=== PATIENT | female | born 2000 | race Caucasian/White ===

== ENCOUNTER 2023-08-08 23:35 | Day surgery (SDC) | payer BC, SELFPAY ==
[2023-08-08 16:17] VITALS: BP 132/81
[2023-08-08 16:53] LABS: % Basophils 0.2 % (0-2); % Eosinophils 0.9 % (0-6); % Immature Granulocytes 0.1 % (0-0.5); % Lymphocytes 24.7 % (20.5-51.1); % Monocytes 7.8 % (1.7-9.3); % Neutrophils 66.3 % (42.2-75.2); Absolute Eosinophils 0.1 10^3/uL (0-0.7); Absolute Lymphocytes 2.2 10^3/uL (1.2-3.4); Absolute Monocytes 0.7 10^3/uL (0.1-0.6); Absolute Neutrophils 5.9 10^3/uL (1.4-6.5); Hematocrit 37.5 % (37.0-47.0); Hemoglobin 12.6 g/dL (12.0-16.0); Mean Corp Hgb Conc. 33.6 g/dL (33.0-37.0); Mean Corpuscular Volume 80.5 fL (81.0-99.0); Mean Platelet Volume 11.2 fL (7.4-10.4); Nucleated Red Blood Cells % 0 %; Platelet Count 297 10^3/uL (130-400); Red Blood Cell Count 4.66 10^6/uL (4.20-5.40)
[2023-08-08 16:54] LABS: Urine Albumin Negative (Neg - Trace); Urine Bilirubin Negative (Negative); Urine Character Clear (Clear); Urine Color Yellow; Urine Glucose Negative (Negative); Urine Ketone Negative (Negative); Urine Leukocyte Negative (Negative); Urine Nitrite Negative (Negative); Urine Occult Blood Negative (Negative); Urine Urobilinogen Negative (Neg - 1+)
[2023-08-08 17:04] LABS: HCG, Serum Qualitative Screen Negative
[2023-08-08 17:10] LABS: ALT (SGPT) 18 U/L (0-35); AST (SGOT) 23 U/L (14-36); Albumin 4.4 g/dl (3.5-5.0); Alkaline Phosphatase 59 U/L (38-126); Blood Urea Nitrogen 10 mg/dl (7-17); Calcium 9.7 mg/dl (8.4-10.2); Carbon Dioxide 24 mmol/L (22-30); Chloride 102 mmol/L (98-107); Glucose 133 mg/dl (70-99); Potassium 4.3 mmol/L (3.5-5.1); Sodium 137 mmol/L (135-145); Total Bilirubin 0.5 mg/dl (0.2-1.3); Total Protein 7.7 g/dl (6.3-8.2); eGFR > 60.00
[2023-08-08 17:11] LABS: Lipase 98 U/L (23-300)
[2023-08-08] MEDS: OMNIPAQUE 50 ML PO (18:25)
[2023-08-08] MEDS: TORADOL 15 MG IV (19:38)
[2023-08-08] MEDS: NSS 1000 IV (19:39)
[2023-08-08 19:46] VITALS: BP 125/70
--- NOTE | 2023-08-08 20:50 | ED.GENMED ---
History of Present Illness
<LARISA Crane - Last Filed: 08/10/23 09:21>
General
Chief Complaint: Abdominal Pain
Source: patient
Exam Limitations: none
Time Seen by Provider: 08/08/23 17:38
Nursing documentation reviewed up to this point in time: agreed with
Travel History
Have you had any contact with someone who has COVID-19?: No
Do you have any symptoms of coronavirus? Fever > 100 degrees, chills, cough, shortness of breath, sore throat, loss of taste or smell, muscle aches, or headache?: No
History of Present Illness
History of Present Illness:
Patient is a 23-year-old female who presents with abdominal pain. Patient reports this morning she was awoken by lower abdominal pain. She went to the bathroom and passed some gas however pain continued throughout the day. She seems to feel pain
in the right lower quadrant right side of the abdomen. She did move her bowels yesterday normally. She denies any urinary frequency urgency or dysuria. She is not sexually active. She is due for her period next week.
She is mildly nauseous denies any fever chills back pain.
Review of Systems
<LARISA Crane - Last Filed: 08/10/23 09:21>
Review of Systems
Allergies reviewed?: Yes
All Other Systems: ROS reviewed and negative except as documented in HPI and ROS
Constitutional: Reports no symptoms; Denies fever, fatigue or chills
Respiratory: Reports no symptoms
Cardiac: Reports no symptoms
ABD/GI: Reports abdominal pain and nausea; Denies vomiting, diarrhea or constipated
: Reports no symptoms
Musculoskeletal: Reports no symptoms
Skin: Reports no symptoms
Neurological: Reports no symptoms
Hematologic/Lymphatic: Reports no symptoms
Psychiatric: Reports no symptoms
Phy Exam
<LARISA Crane - Last Filed: 08/10/23 09:21>
General Physical Exam
General Presentation: no apparent distress
General age: appears stated age
General Skin: warm and dry
General Habitus: normal
General Mental: alert
General Hydration: appears well hydrated
Cardiovascular Exam
Cardiovascular Exam: regular rate/rhythm, no murmur and normal peripheral pulses
Pulmonary Exam
Pulmonary Exam: lungs clear and no respiratory distress
Gastrointestinal Exam
Gastrointestinal Exam: non tender, soft and other (right lq tenderness no guarding no rebound )
Neurological Exam
Neurological Exam: alert and oriented x3
Weidman Coma Scale
Eye Opening: Spontaneous
Verbal Response: Oriented
Motor Response: Obeys Commands
GCS Total Score: 15
Musculoskeletal Exam
Musculoskeletal Exam: full ROM
Skin Exam
Skin Exam: normal color and warm/dry
Psychiatric Exam
Psychiatric Exam: normal mood/affect
<LARISA Russ - Last Filed: 08/08/23 22:26>
Amy Coma Scale
GCS Total Score: 15
Course
<Nallely Erickson, LARISA - Last Filed: 08/10/23 09:21>
Orders/Labs/Results
Orders:
Orders
08/08/23 16:33
Test Result ONCE
08/08/23 16:38
CMP [Comprehensive Metabolic Panel] Urgent
Complete Blood Count/With Diff Urgent
HCG, Serum Qualitative Screen Urgent
Lipase Urgent
Urinalysis Reflex To Culture Urgent
Date Specimen was Collected: 08/08/23
Time Specimen was Collected: 16:33
08/08/23 18:14
Iohexol [Omnipaque] See Protocol PO NOW STA
08/08/23 18:15
CT Abd/pel W Iv And Oral Contr Urgent
Comment:
Reason For Exam: rlq pain
08/08/23 18:16
US Pelvis Only (non-obstetric) Urgent
Comment:
Reason For Exam: rlq pain
08/08/23 19:20
0.9% Sodium Chloride 1000 ml [Nss] 1,000 ml IV BOLUS
Ketorolac [Toradol] 15 mg IV NOW STA
08/08/23 22:19
Piperacillin/Tazo 3.375 Gram [Zosyn] 3.375 gram in 50 ml IV NOW
08/08/23 22:59
Admit/Transfer Patient As Directed
Co-Sign Provider:
Level of Care: Inpatient admission
Assign to:: Medical/Surgical
Physician / Group: Luis Wilson
Diagnosis: Acute Appendicitis
Reason for Hospitalization: IV medications
Expected length of stay greater than two midnights?: No
ELOS- Estimated Length of Stay in days: 1
I certify the patient meets the requirements for IP care: Yes
08/08/23 23:01
Code Status As Directed
Resuscitation Status: Full Code
08/08/23 23:55
HYDROmorphone [Dilaudid] 0.5 mg IV Q4HPRN PRN
Ketorolac [Toradol] 10 mg IV Q6HPRN PRN
Ondansetron Injectable [Zofran] 4 mg IV Q6HPRN PRN
08/08/23 23:55
Activity As Directed
Activity Level: Out of Bed-Early Mobility
Anti-embolism (LISSETT) Hose As Directed
Type: Thigh high
Intake/ Output As Directed
Frequency: Per unit guidelines
Pneumatic Compression Sleeves As Directed
Type: Thigh high
Vital Signs As Directed
Frequency: Per unit guidelines
DX Deep Vein Thrombosis Video Routine
08/09/23 03:00
Flush (0.9% Sodium Chloride) [Flush (Nss)] See Dose Instructions IV PER PROTOCOL
08/09/23 04:00
Piperacillin/Tazo 3.375 Gram [Zosyn] 3.375 gram in 50 ml IV Q6H
08/09/23 05:38
Basic Metabolic Panel IN AM
Complete Blood Count/No Diff IN AM
08/09/23 Breakfast
NPO
Allow oral meds: Yes
Allow clear liquids: No
08/09/23 10:10
HYDROmorphone [Dilaudid] 0.25 mg IV PACU-Q5MPRN PRN
HYDROmorphone [Dilaudid] 0.5 mg IV PACU-Q5MPRN PRN
Meperidine [Demerol] 12.5 mg IV PACU-Q5MPRN PRN
Ondansetron Injectable [Zofran] 4 mg IV PACU-ONCEPRN PRN
Prochlorperazine [Compazine] 5 mg IV PACU-ONCEPRN PRN
Notify MD As Directed
Notify physician if: for SDS patients with known or suspected sleep obstructive sleep apnea, monitor in the
PACU.
Notify MD for any apneic/desaturation episodes
O2 Therapy [RESP] Urgent
Titrate/Wean O2 to maintain O2 sat greater than (%): 92
Special Instructions: -Provide supplemental oxygen to achieve O2 sat of 92% or greater.
-After 15 min, may wean O2 and discontinue if patient is able to maintain O2 sat of 92%
or greater during recovery period.
If patient is a discharge home, without oxygen therapy, notify anestheiologist if
unable to maintain O2 SAT of 92% or greater on room air for MD clearance.
08/09/23 10:15
Normosol (Mult Electrolytes) [Normosol-R] 1,000 ml IV PER PROTOCOL
08/09/23 11:53
Bupivacaine Mpf 0.25% [Sensorcaine-Mpf 0.25% Vial] 30 ml .ROUTE .STK-MED ONE
Bupivacaine Pf 0.5% [Sensorcaine 0.5% Single Dose] 30 ml .ROUTE .STK-MED ONE
08/09/23 11:56
Dexamethasone Sod Phosphate [Decadron] 20 mg .ROUTE .STK-MED ONE
Fentanyl Citrate/Pf [Sublimaze] 100 mcg .ROUTE .STK-MED ONE
Lidocaine HCl/Pf [Xylocaine-Mpf 1% Vial] 50 mg .ROUTE .STK-MED ONE
Ondansetron Injectable [Zofran] 4 mg .ROUTE .STK-MED ONE
Propofol [Diprivan] 20 ml .ROUTE .STK-MED
Rocuronium [place] [Rocuronium] 50 mg .ROUTE .STK-MED ONE
08/09/23 11:57
Midazolam HCl [Versed] 2 mg .ROUTE .STK-MED ONE
08/09/23 13:10
HYDROmorphone [Dilaudid] 1 mg .ROUTE .STK-MED ONE
08/09/23 13:18
Sugammadex Sodium [Bridion] 200 mg .ROUTE .STK-MED ONE
08/09/23 13:19
Acetaminophen 1000MG/100Ml [Ofirmev] 1,000 mg in 100 ml .ROUTE .STK-MED
08/09/23 13:26
OR Pathology Routine
Pre-Operative Diagnosis: APPENDICITIS
Operative Procedure: LAPAROSCOPIC APPENDECTOMY
Surgeon: DAVID
Circulating Nurse: LATIA LOPEZ
Specimen Type: APPENDIX
08/09/23 13:28
Discharge Patient As Directed
Is patient a candidate for the pneumococcal vaccine?: No
Is patient a candidate for the influenza vaccine?: No
Do you have a designated caregiver: Yes-same as spokesperson
08/09/23 13:35
Level of Care Change As Directed
Level of Care: Post Proc/Surg Recovery
Reason for Overnight Stay: Standard of Care
08/09/23 14:18
HYDROmorphone [Dilaudid] 0.5 mg .ROUTE .STK-MED ONE
08/09/23 15:00
Acetaminophen [Tylenol] 650 mg PO SDS-Q4HPRN PRN
Ondansetron Injectable [Zofran] 4 mg IV SDS-ONCEPRN PRN
Oxycodone [Roxicodone] 10 mg PO SDS-Q4HPRN PRN
Oxycodone [Roxicodone] 5 mg PO SDS-Q4HPRN PRN
08/09/23 15:15
HYDROmorphone [Dilaudid] 0.5 mg .ROUTE .STK-MED ONE
08/10/23 04:00
Piperacillin/Tazo 3.375 Gram [Zosyn] 3.375 gram in 50 ml IV Q6H
Abnormal Lab Results
08/08/23 08/09/23
16:38 05:38
Hgb 11.4 L g/dL
(12.0-16.0)
Hct 34.9 L %
(37.0-47.0)
MCV 80.5 L fL
(81.0-99.0)
MCH 26.8 L pg
(27.0-31.0)
MCHC 32.7 L g/dL
(33.0-37.0)
MPV 11.2 H fL 11.1 H fL
(7.4-10.4) (7.4-10.4)
Absolute Monos (auto) 0.7 H 10^3/uL
(0.1-0.6)
Chloride 108 H mmol/L
(98-107)
Glucose 133 H mg/dl
(70-99)
08/09/23 05:38
08/09/23 05:38
Vital Signs
Initial and Last Documented VS:
Initial Vital Signs
Temp Pulse Resp BP Pulse Ox
98.7 F 97 18 132/81 98
08/08/23 16:17 08/08/23 16:17 08/08/23 16:17 08/08/23 16:17 08/08/23 16:17
Last Documented Vital Signs
Temp Pulse Resp BP Pulse Ox
98 F 78 18 122/78 96
08/09/23 15:25 08/09/23 17:20 08/09/23 17:20 08/09/23 17:20 08/09/23 17:20
Spring Setter consulted with Physician
Spring Setter consulted with physician?: Yes
Name of Physician Consulted: Bayron
<LARISA Russ - Last Filed: 08/08/23 22:26>
Orders/Labs/Results
Orders:
Orders
08/08/23 16:33
Test Result ONCE
08/08/23 16:38
CMP [Comprehensive Metabolic Panel] Urgent
Complete Blood Count/With Diff Urgent
HCG, Serum Qualitative Screen Urgent
Lipase Urgent
Urinalysis Reflex To Culture Urgent
Date Specimen was Collected: 08/08/23
Time Specimen was Collected: 16:33
08/08/23 18:14
Iohexol [Omnipaque] See Protocol PO NOW STA
08/08/23 18:15
CT Abd/pel W Iv And Oral Contr Urgent
Comment:
Reason For Exam: rlq pain
08/08/23 18:16
US Pelvis Only (non-obstetric) Urgent
Comment:
Reason For Exam: rlq pain
08/08/23 19:20
0.9% Sodium Chloride 1000 ml [Nss] 1,000 ml IV BOLUS
Ketorolac [Toradol] 15 mg IV NOW STA
08/08/23 22:19
Piperacillin/Tazo 3.375 Gram [Zosyn] 3.375 gram in 50 ml IV NOW
08/08/23 22:59
Admit/Transfer Patient As Directed
Co-Sign Provider:
Level of Care: Inpatient admission
Assign to:: Medical/Surgical
Physician / Group: Luis Wilson
Diagnosis: Acute Appendicitis
Reason for Hospitalization: IV medications
Expected length of stay greater than two midnights?: No
ELOS- Estimated Length of Stay in days: 1
I certify the patient meets the requirements for IP care: Yes
08/08/23 23:01
Code Status As Directed
Resuscitation Status: Full Code
08/08/23 23:55
HYDROmorphone [Dilaudid] 0.5 mg IV Q4HPRN PRN
Ketorolac [Toradol] 10 mg IV Q6HPRN PRN
Ondansetron Injectable [Zofran] 4 mg IV Q6HPRN PRN
08/08/23 23:55
Activity As Directed
Activity Level: Out of Bed-Early Mobility
Anti-embolism (LISSETT) Hose As Directed
Type: Thigh high
Intake/ Output As Directed
Frequency: Per unit guidelines
Pneumatic Compression Sleeves As Directed
Type: Thigh high
Vital Signs As Directed
Frequency: Per unit guidelines
DX Deep Vein Thrombosis Video Routine
08/09/23 03:00
Flush (0.9% Sodium Chloride) [Flush (Nss)] See Dose Instructions IV PER PROTOCOL
08/09/23 04:00
Piperacillin/Tazo 3.375 Gram [Zosyn] 3.375 gram in 50 ml IV Q6H
08/09/23 05:38
Basic Metabolic Panel IN AM
Complete Blood Count/No Diff IN AM
08/09/23 Breakfast
NPO
Allow oral meds: Yes
Allow clear liquids: No
08/09/23 10:10
HYDROmorphone [Dilaudid] 0.25 mg IV PACU-Q5MPRN PRN
HYDROmorphone [Dilaudid] 0.5 mg IV PACU-Q5MPRN PRN
Meperidine [Demerol] 12.5 mg IV PACU-Q5MPRN PRN
Ondansetron Injectable [Zofran] 4 mg IV PACU-ONCEPRN PRN
Prochlorperazine [Compazine] 5 mg IV PACU-ONCEPRN PRN
Notify MD As Directed
Notify physician if: for SDS patients with known or suspected sleep obstructive sleep apnea, monitor in the
PACU.
Notify MD for any apneic/desaturation episodes
O2 Therapy [RESP] Urgent
Titrate/Wean O2 to maintain O2 sat greater than (%): 92
Special Instructions: -Provide supplemental oxygen to achieve O2 sat of 92% or greater.
-After 15 min, may wean O2 and discontinue if patient is able to maintain O2 sat of 92%
or greater during recovery period.
If patient is a discharge home, without oxygen therapy, notify anestheiologist if
unable to maintain O2 SAT of 92% or greater on room air for MD clearance.
08/09/23 10:15
Normosol (Mult Electrolytes) [Normosol-R] 1,000 ml IV PER PROTOCOL
08/09/23 11:53
Bupivacaine Mpf 0.25% [Sensorcaine-Mpf 0.25% Vial] 30 ml .ROUTE .STK-MED ONE
Bupivacaine Pf 0.5% [Sensorcaine 0.5% Single Dose] 30 ml .ROUTE .STK-MED ONE
08/09/23 11:56
Dexamethasone Sod Phosphate [Decadron] 20 mg .ROUTE .STK-MED ONE
Fentanyl Citrate/Pf [Sublimaze] 100 mcg .ROUTE .STK-MED ONE
Lidocaine HCl/Pf [Xylocaine-Mpf 1% Vial] 50 mg .ROUTE .STK-MED ONE
Ondansetron Injectable [Zofran] 4 mg .ROUTE .STK-MED ONE
Propofol [Diprivan] 20 ml .ROUTE .STK-MED
Rocuronium [place] [Rocuronium] 50 mg .ROUTE .STK-MED ONE
08/09/23 11:57
Midazolam HCl [Versed] 2 mg .ROUTE .STK-MED ONE
08/09/23 13:10
HYDROmorphone [Dilaudid] 1 mg .ROUTE .STK-MED ONE
08/09/23 13:18
Sugammadex Sodium [Bridion] 200 mg .ROUTE .STK-MED ONE
08/09/23 13:19
Acetaminophen 1000MG/100Ml [Ofirmev] 1,000 mg in 100 ml .ROUTE .STK-MED
08/09/23 13:26
OR Pathology Routine
Pre-Operative Diagnosis: APPENDICITIS
Operative Procedure: LAPAROSCOPIC APPENDECTOMY
Surgeon: DAVID
Circulating Nurse: LATIA LOPEZ
Specimen Type: APPENDIX
08/09/23 13:28
Discharge Patient As Directed
Is patient a candidate for the pneumococcal vaccine?: No
Is patient a candidate for the influenza vaccine?: No
Do you have a designated caregiver: Yes-same as spokesperson
08/09/23 13:35
Level of Care Change As Directed
Level of Care: Post Proc/Surg Recovery
Reason for Overnight Stay: Standard of Care
08/09/23 14:18
HYDROmorphone [Dilaudid] 0.5 mg .ROUTE .STK-MED ONE
08/09/23 15:00
Acetaminophen [Tylenol] 650 mg PO SDS-Q4HPRN PRN
Ondansetron Injectable [Zofran] 4 mg IV SDS-ONCEPRN PRN
Oxycodone [Roxicodone] 10 mg PO SDS-Q4HPRN PRN
Oxycodone [Roxicodone] 5 mg PO SDS-Q4HPRN PRN
08/09/23 15:15
HYDROmorphone [Dilaudid] 0.5 mg .ROUTE .STK-MED ONE
08/10/23 04:00
Piperacillin/Tazo 3.375 Gram [Zosyn] 3.375 gram in 50 ml IV Q6H
Abnormal Lab Results
08/08/23 08/09/23
16:38 05:38
Hgb 11.4 L g/dL
(12.0-16.0)
Hct 34.9 L %
(37.0-47.0)
MCV 80.5 L fL
(81.0-99.0)
MCH 26.8 L pg
(27.0-31.0)
MCHC 32.7 L g/dL
(33.0-37.0)
MPV 11.2 H fL 11.1 H fL
(7.4-10.4) (7.4-10.4)
Absolute Monos (auto) 0.7 H 10^3/uL
(0.1-0.6)
Chloride 108 H mmol/L
(98-107)
Glucose 133 H mg/dl
(70-99)
08/09/23 05:38
08/09/23 05:38
Vital Signs
Initial and Last Documented VS:
Initial Vital Signs
Temp Pulse Resp BP Pulse Ox
98.7 F 97 18 132/81 98
08/08/23 16:17 08/08/23 16:17 08/08/23 16:17 08/08/23 16:17 08/08/23 16:17
Last Documented Vital Signs
Temp Pulse Resp BP Pulse Ox
98 F 78 18 122/78 96
08/09/23 15:25 08/09/23 17:20 08/09/23 17:20 08/09/23 17:20 08/09/23 17:20
<LARISA Crane - Last Filed: 08/10/23 09:21>
MDM/Problems Addressed
Differential Diagnosis Includes:
not limited to:
Ovarian cyst ovarian torsion appendicitis
MDM/Problems Addressed:
20-year-old female presents with lower abdominal pain that started this morning has worsened throughout the day. On exam patient is tender in the right lower quad no guarding normal ultrasound normal white count no fever. CAT scan pending at this
time.
7:
pt resting awaiting ct results.
<LARISA Russ - Last Filed: 08/08/23 22:26>
MDM/Problems Addressed
MDM/Problems Addressed:
20-year-old female presents with lower abdominal pain that started this morning has worsened throughout the day. On exam patient is tender in the right lower quad no guarding normal ultrasound normal white count no fever. CAT scan pending at this
time.
7:
pt resting awaiting ct results.
Into see patient and explained that she has an acute appendicitis. Will admit patient. Message sent to Dr Guzman and await his response.
<LARISA Crane - Last Filed: 08/10/23 09:21>
*Radiology
Radiology exam reviewed: radiology read reviewed (Normal ultrasound of pelvis)
*Pulse Oximetry
Patient hypoxic: no
<LARISA Russ - Last Filed: 08/08/23 22:26>
*Radiology
Radiology exam reviewed: radiology read reviewed (Normal ultrasound of pelvis CT- Suspected mild acute appendicitis. No CT evidence for perforation or periappendiceal abscess formation. )
*Critical Care Note
Total Time (30-74mins, 75-104mins- exclusive of procedures): Not Applicable
ED Attending Note
<LARISA Crane - Last Filed: 08/10/23 09:21>
-
Portions of this chart may have been created with voice recognition software.� Occasional wrong word or��sound alike� substitutions may have occurred due to the inherent limitations of voice recognition software.
Discharge Plan
Departure
Patient Disposition: Admit
Date of Disposition: 08/08/23
Time of Disposition: 22:25
Admit to: Med/Surg
Presentation/result/management discussed w/ accepting MD/DO: Dr Guzman
Patient with high blood pressure during this ER visit?: No
Condition: Good
Covid-19: Not Applicable
Discharge Problem:
Acute appendicitis
Interventions
Interventions:
*Risk Screen - Suicide Last Done: 08/08/23 16:30
*General Assessment Last Done: 08/09/23 00:20
*Neglect/Abuse Screening Last Done: 08/08/23 16:30
ED- Fall Risk Assessment Last Done: 08/09/23 00:15
*ED COVID-19 Vaccine History Last Done: 08/08/23 16:30
*Nursing Disposition Last Done: 08/09/23 00:15
SK-Ixzpqv-Tnucrjxauj Assessment Last Done: 08/09/23 00:20
[2023-08-08 21:38] VITALS: BP 126/76
[2023-08-08 22:15] VITALS: BP 107/65
[2023-08-08] MEDS: ZOSYN 50 IV (22:23)
--- NOTE | 2023-08-08 22:49 | HPS.HSE ---
Addendum entered and electronically signed by Luis Guzman MD 08/09/23 10:31:
I saw and examined the patient.
The Epic Manager's note was reviewed and I agree with the note.
Comment: Mildly improved this am. Remains ttp to RLQ on exam. Imaging and labs reviewed, c/w acute appendicitis. OCTOR for lap appy. NPO. IV abx
Original Note:
Family Physician
-
Family Physician: Juana Hines MD
Chief Complaint
-
'Abdomen pain'
History of Present Illness
23 y/o patient presents to ER with abdomen pain. Stated epigastric pain started around 6 am, thought she had to move her bowels, only passed gas. Noticed pain then started radiating more towards right lower quadrant and felt 'stabbing' pain and
decided to come to ER for further work up. Had few nausea episodes, no vomiting. LBM yesterday normal stool. Denies any blood in stool or urine. Denies chest pain or shortness of breath. hx of breast reduction in 2018, no other surgical or medical
history.
Medical History
Past Medical History
Past Medical History: Reports None
Past Surgical History: Reports None
Social History
Tobacco: Non-smoker
Alcohol: None
Drug: None
Family History
Family History: Not pertinent
Allergies / Home Medications
Allergies reflects when Allergies were last updated in [employer].
Home Medications with original date entered in [employer]
Allergy/Medication List:
Allergies
Allergy/AdvReac Type Severity Reaction Status Date / Time
No Known Allergies Allergy Unverified 08/08/23 16:28
Home Medications
norgestimate 0.25 mg-ethinyl estradiol 35 mcg tablet (Estarylla) 1 tab PO DAILY 08/08/23
Review of Systems
-
History Source: Patient
A 12 point ROS was completed and negative except as noted: Yes
Constitutional: Reports No Symptoms
EENT: Reports No Symptoms
Respiratory: Reports No Symptoms
Cardiac: Reports No Symptoms
Abdomen/GI: Reports Abdominal Pain and Nausea
: Reports No Symptoms
Musculoskeletal: Reports No Symptoms
Skin: Reports No Symptoms
Neurological: Reports No Symptoms
Endocrine: Reports No Symptoms
Hematologic/Lymphatic: Reports No Symptoms
Psych: Reports No Symptoms
Physical Exam
Vital Signs
Vital Signs
Temp Pulse Resp BP Pulse Ox
98.7 F 73 18 107/65 97
08/08/23 16:17 08/08/23 22:15 08/08/23 22:15 08/08/23 22:15 08/08/23 22:15
Physical Exam
General: Well Developed, Well Nourished and No Apparent Distress
HEENT: NormoCephalic, Moist mucous membranes and Atraumatic
Respiratory: Clear and Non Labored Respirations
Cardiac: S1/S2 and Regular Rhythm
Breast: Deferred by me
GI: Soft, Non Distended, Normal Bowel Sounds and Tender (RLQ, tender with deep breaths )
Rectal: Deferred by Provider
Genito-urinary: Deferred by me
Musculoskeletal: No Clubbing, No Cyanosis and No Edema
Skin: Warm and Dry; No Rash
Neuro: Awake, Oriented, AO x 3 and Nonfocal/grossly intact
Hematologic/Lymphatic: No Lymphadenopathy
Psych: Calm and Intact Judgment/Insight
Laboratory Results
-
08/08/23 16:38
08/08/23 16:38
Laboratory Results
Total Bilirubin 0.5 mg/dl (0.2-1.3) 08/08/23 16:38
AST 23 U/L (14-36) 08/08/23 16:38
ALT 18 U/L (0-35) 08/08/23 16:38
Alkaline Phosphatase 59 U/L (38-126) 08/08/23 16:38
Lipase 98 U/L (23-300) 08/08/23 16:38
Data Reviewed
-
CT Scan: Report Reviewed by me
Ultrasound: Report Reviewed by me
Lab Data: Labs Reviewed by me
Impression/Plan
-
23 y/o with abdomen pain radiating to RLQ
# Abdomen pain likely due to Appendicitis.
-Afebrile
-CT abd/pelvis
Suspected mild acute appendicitis. No CT evidence for perforation or periappendiceal abscess formation.
-Pelvis Ultrasound:
Normal transabdominal ultrasound of the pelvis
-NPO
-continue IV Zosyn
-Continue IV antiemetics
-Continue IV Analgesics
-Admit under Luis Wilson
-Med surg
Full Code
DVT Prophylaxis: SCD's
[2023-08-08 23:46] VITALS: BP 107/67
[2023-08-09] VITALS (14 sets, daily range): BP systolic 95–122; BP diastolic 53–78
[2023-08-09] MEDS: TORADOL 10 MG IV ×2 (00:24→08:13)
[2023-08-09] MEDS: ZOSYN 50 IV ×2 (04:36→09:38)
[2023-08-09 05:45] LABS: Hematocrit 34.9 % (37.0-47.0); Hemoglobin 11.4 g/dL (12.0-16.0); Mean Corp Hgb Conc. 32.7 g/dL (33.0-37.0); Mean Corpuscular Hgb 26.8 pg (27.0-31.0); Mean Corpuscular Volume 81.9 fL (81.0-99.0); Mean Platelet Volume 11.1 fL (7.4-10.4); Platelet Count 239 10^3/uL (130-400); Red Blood Cell Count 4.26 10^6/uL (4.20-5.40); Red Cell Dist. Width 13.8 % (11.5-14.5); White Blood Cell Count 6.6 10^3/uL (4.8-10.8)
[2023-08-09 06:08] LABS: Blood Urea Nitrogen 8 mg/dl (7-17); Calcium 8.7 mg/dl (8.4-10.2); Carbon Dioxide 24 mmol/L (22-30); Chloride 108 mmol/L (98-107); Estimated Creatinine Clearance 87 ml/min; Glucose 93 mg/dl (70-99); Sodium 136 mmol/L (135-145); eGFR > 60.00
--- NOTE | 2023-08-09 13:33 | OR.RPT ---
Operative Report
Operative Report
Primary Surgeon: Thomas
Assisting: Nelia HERNANDEZ
Pre-op Diagnosis: Acute appendicitis
Post-op Diagnosis: Same
Procedure Performed: Laparoscopic appendectomy
Anesthesia Type: GETA
Specimen / Cultures: Appendix
Estimated Blood Loss: 10cc
Complications: None immediate
Operative Findings: Very mildly inflamed appendix, no pelvic free fluid; staple line bleeder controlled with direct pressure
Date of Surgery: 08/09/23
Indications: This 23F developed right lower quadrant abdominal pain and on workup was found to have acute appendicitis. Laparoscopic appendectomy was elected.
Description of procedure: The patient was placed on the operating table in the supine position. General anesthesia was induced. A time-out was completed verifying correct patient, procedure, site, positioning, and special equipment prior to
beginning this procedure. An orogastric tube was placed. The abdomen was prepped and draped in the usual sterile fashion. A stab incision was made in left upper quadrant and the Veress needle was inserted. Proper position was confirmed by aspiration
and saline meniscus test. The abdomen was insufflated with carbon dioxide to a pressure of 12 mmHg. The patient tolerated insufflation well.
A 5mm optical trocar was then inserted at the left lower quadrant. The laparoscope was inserted and the abdomen inspected. No injuries from initial trocar placement or Veress needle insertion were noted. Additional trocars were then inserted in the
following locations: a 12-mm trocar at the umbilicus and a 5-mm trocar midline in the suprapubic space. The abdomen was inspected and no abnormalities were found. The table was placed in the Trendelenburg position with the right side up. The tip of
the appendix was mildly hyperemic. It was gently grasped with an atraumatic grasper and retracted toward the patient�s feet and abdominal wall. This maneuver exposed the appendiceal blood supply which was controlled with the Ligasure device.
Following this, a laparoscopic linear cutting stapler with a 45mm holley load was deployed and used to transect the appendix at its base. The appendix was placed in an endoscopic retrieval bag, removed through the umbilical port, and passed off the
table as a specimen.
We then turned our attention to the staple line, which was noted to have a small bleeding vessel. Direct pressure was applied with a raytec for several minutes. The area was observed for an additional several minutes and noted to be hemostatic. The
pelvis was inspected, no free fluid was identified. The umbilical trocar site was closed at the fascial level laparoscopically with 2-0 PDS under direct vision. Secondary trocars were removed under direct vision and noted to be hemostatic. The
laparoscope was withdrawn and the abdomen was allowed to collapse. The skin was closed with subcuticular sutures of 4-0 monocryl and topical skin adhesive. The orogastric tube was removed.
The patient tolerated the procedure well and was taken to the postanesthesia care unit in stable condition.
--- NOTE | 2023-08-09 13:35 | W.DS.TRANS ---
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
-
Discharge Instructions:
Discharge Diagnosis/Procedures Laparoscopic appendectomy for acute appendicitis
Diet No restrictions
Activity No strenuous activity
Driving Restrictions No driving for 24 hours
Bathing Restrictions OK to Shower
Wound Care Allow skin glue to flake off on its own.
Instructions: Appendectomy, Laparoscopic Surgery (DC)
Stand-Alone Forms:
Changes to Home Medications: No
Discharge Medications:
DC Medications w/original date entered in [facility]
norgestimate 0.25 mg-ethinyl estradiol 35 mcg tablet (Estarylla) 1 tab PO DAILY 08/08/23
oxycodone 5 mg tablet 5 - 10 mg PO Q4HPRN PRN moderate to severe pain #16 tabs 08/09/23
Home Medication Changes
Pending Results: No
[2023-08-09] MEDS: DILAUDID 0.25 MG IV ×3 (14:19→15:16)
[2023-08-09] MEDS: ZOFRAN 4 MG IV (16:21)
== END 2023-08-09 13:28 | disposition home or self-care (01) ==
LOC: SDS 23:35
PROVIDERS: Emergency Medicine; Nurse Practitioner Gerontology; ATTENDING PHYSICIAN Surgery; EMERGENCY PHYSICIAN Emergency Medicine; FAMILY PHYSICIAN Family Medicine
DX: K35.80 Unspecified acute appendicitis (principal); R10.31 Right lower quadrant pain
CPT/HCPCS: 44970; 88304; 74177; 76856; 80048; 80053; 81003; 83690; 84703; 85025; 85027; 96361; 96365; 96375; 99285; Q9967